=== PATIENT | female | born 1965 | race Hispanic/Latino ===

== ENCOUNTER 2019-05-14 12:22 | Emergency (ER) | payer OTHER ==
[2019-05-14] MEDS ORDERED: NA CHLORIDE 0.9% 500 ML ONE (12:49)
[2019-05-14] MEDS ORDERED: NA CHLORIDE 0.9% 0 ML ONE (12:49)
--- NOTE | 2019-05-14 13:14 | RAD REPORT ---
EXAM DESCRIPTION: CT - Head C Spine Mpr Wo Con - 05/14/2019 12:55 pm CLINICAL HISTORY: Alteration of awareness. Confusion. Head and neck pain COMPARISON: 2012 TECHNIQUE: Computed axial tomography of the head and cervical spine was obtained. Sagittal and coronal reconstruction was performed. All CT scans are performed using dose optimization technique as appropriate and may include automated exposure control or mA/KV adjustment according to patient size. FINDINGS: An intracranial bleed is not seen. The ventricles are normal in caliber. An extra-axial fl uid collection is not noted. Mild parahilar peribronchial infiltrates are present A cervical fracture is not visualized. No dislocation is noted. IMPRESSION: No acute intracranial abnormality is seen. Complete opacification of the left maxillary sinus with expansion of the left ostiomeatal complex may be secondary to a mass or sinusitis A cervical fracture is not visualized. If the patient continues to have symptoms to suggest intracra nial /spinal cord pathology then MRI would be recommended
--- NOTE | 2019-05-14 13:19 | RAD REPORT ---
EXAM DESCRIPTION: Kimmy Single View05/14/2019 1:08 pm CLINICAL HISTORY: sob COMPARISON: 2012 FINDINGS: The lungs appear clear of acute infiltrate. The heart is normal size IMPRESSION: No acute abnormalities displayed
[2019-05-14 13:59] LABS: Urine Blood NEGATIVE (NEG); Urine Glucose NEGATIVE (NEG); Urine Protein NEGATIVE (NEG); Urine Specific Gravity 1.015 (1.005-1.030)
[2019-05-14 14:01] LABS: ALT/SGPT 48 U/L (12-78); AST/SGOT 36 U/L (15-37); Alkaline Phosphatase 94 U/L (45-117); BUN Blood Urea Nitrogen 15 mg/dL (7-18); Bicarbonate 29 mmol/L (21-32); Bilirubin Direct 0.2 mg/dL (0-0.2); Glucose Level 94 mg/dL (74-106); Magnesium 2.4 mg/dL (1.8-2.4); NT PRO-BNP 122 pg/mL (<125); Protein, Total 8.7 g/dL (6.4-8.2); Sodium Level 143 mmol/L (136-145); Troponin (Emerg Dept Use Only) < 0.02 ng/mL (0.0-0.045)
[2019-05-14] MEDS ORDERED: ONDANSETRON 4 MG/2 ML VIAL ONE (14:14)
[2019-05-14] MEDS ORDERED: CEFTRIAXONE/SWI 1gm 1 GM/10 ML SYR ONE (14:15)
[2019-05-14] MEDS ORDERED: NA CHLORIDE 0.9% 1,000 ML ONE (14:15)
[2019-05-14 14:20] LABS: Absolute Lymphocytes (CBC) 1.7 K/uL (0.7-4.9); Basophils % 0.2 % (0-1.3); Hematocrit 34.5 % (36.0-45.0); Lymphocytes % 30.2 % (15.3-44.8); MPV 9.6 fL (7.6-11.3); Protime INR 1.04; RBC Red Blood Cell Count 3.67 M/uL (3.86-4.86)
--- NOTE | 2019-05-14 15:05 | RAD REPORT ---
EXAM DESCRIPTION: RAD - Shoulder Right 2 View - 05/14/2019 2:43 pm CLINICAL HISTORY: Right shoulder pain FINDINGS: No fracture or dislocation is seen.
--- NOTE | 2019-05-14 15:13 | ER ---
Nurse's Notes [facility] Name: Chika Jenkins Age: 53 yrs Sex: Female : 1965 Arrival Date: 05/14/2019 Time: 12:23 Bed 3 Private MD: Diagnosis: Headache;Superficial injury of head;Strain of muscle, fascia and tendon at neck level;Pain in right shoulder;Acute sinusitis Presentation: 05/14 12:23 Presenting complaint: EMS states: CALLED FOR UNRESPONSIVE AT [facility]. Transition of bp care: patient was not received from another setting of care. Onset of symptoms is unknown. Risk Assessment: Do you want to hurt yourself or someone else? Patient reports no desire to harm self or others. Initial Sepsis Screen: Does the patient meet any 2 criteria? No. Patient's initial sepsis screen is negative. Does the patient have a suspected source of infection? No. Patient's initial sepsis screen is negative. Care prior to arrival: Glucose check: 181. 12:23 Method Of Arrival: EMS: [facility] bp 12:23 Acuity: OMAR 2 bp Triage Assessment: 12:25 General: Appears in no apparent distress. comfortable, obese, Behavior is cooperative, bp agitated, anxious. Pain: Complains of pain in right arm. EENT: No deficits noted. Neuro: Level of Consciousness is obeys commands, lethargic. Cardiovascular: No deficits noted. Respiratory: No deficits noted. GI: No signs and/or symptoms were reported involving the gastrointestinal system. : No signs and/or symptoms were reported regarding the genitourinary system. Derm: No deficits noted. Musculoskeletal: No deficits noted. 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 - Social history:: Smoking status: unknown. - Ebola Screening: : No symptoms or risks identified at this time. - Family history:: not pertinent. Screenin:27 Abuse screen: Denies threats or abuse. Denies injuries from another. Nutritional bp screening: No deficits noted. Tuberculosis screening: No symptoms or risk factors identified. Fall Risk None identified. Assessment: 12:27 General: SEE TRIAGE NOTE. bp 12:42 Reassessment: PT TO CT. bp 13:31 Reassessment: UOP PENDING, ALL OTHER ORDERS COMPLETED. bp 15:07 Reassessment: VS STABLE, ALL CURRENT ORDERS COMPLETED. bp 15:30 Reassessment: D/C ON HOLD FOR C/S. bp 16:31 Reassessment: PT D/C HOME AMBULATORY WITH FAMILY, DX WITH ACUTE SINUSITIS. bp Vital Signs: 12:25 BP 150 / 81; Pulse 74; Resp 16; Temp 98; Pulse Ox 100% ; Weight 79.38 kg; bp 13:31 BP 117 / 71; Pulse 75; Resp 15; Pulse Ox 98% ; bp 15:07 BP 126 / 72; Pulse 68; Resp 17; Pulse Ox 99% ; bp NIH Stroke Scale Scores: 12:25 NIHSS Score: 1 bp ED Course: 12:23 Patient arrived in ED. bp 12:24 Triage completed. bp 12:25 Arm band placed on. bp 12:26 Inserted saline lock: 22 gauge in left upper arm, using aseptic technique. Blood hj collected. 12:27 Patient has correct armband on for positive identification. Bed in low position. Call bp light in reach. Side rails up X2. 12:31 Jose Sanders, ALECIA is Primary Nurse. bp 12:34 Oleg Sullivan MD is Attending Physician. cary 12:34 EKG done, by ED staff, reviewed by Oleg Sullivan MD. ms 12:55 CT completed. Patient moved to radiology. bq 12:58 CT Head C Spine In Process Unspecified. EDMS 13:07 XRAY Chest (1 view) In Process Unspecified. EDMS 13:30 Inserted saline lock: 22 gauge in right forearm, using aseptic technique. Blood bp collected. 14:44 Shoulder Right (2 View) XRAY In Process Unspecified. EDMS 15:11 Tanya Lawrence MD is Referral Physician. cary 16:31 No provider procedures requiring assistance completed. IV discontinued, intact, bp bleeding controlled, No redness/swelling at site. Pressure dressing applied. Administered Medications: 13:30 Drug: NS 0.9% 1000 ml Route: IV; Rate: 125 ml/hr; Site: right forearm; bp 16:32 Follow up: IV Status: Completed infusion; IV Intake: 375ml bp 13:30 Drug: NS 0.9% 500 ml Route: IV; Rate: bolus; Site: right forearm; bp 16:32 Follow up: IV Status: Completed infusion; IV Intake: 500ml bp 14:17 Drug: Rocephin - (cefTRIAXone) 1 grams Route: IVPB; Infused Over: 30 mins; Site: right bp forearm; 16:32 Follow up: IV Status: Completed infusion; IV Intake: 50ml bp Intake: 16:32 IV: 500ml; Total: 500ml. bp 16:32 IV: 375ml; Total: 875ml. bp 16:32 IV: 50ml; Total: 925ml. bp Outcome: 15:11 Discharge ordered by MD. cary 16:31 Discharged to home ambulatory, with family. bp 16:31 Condition: stable 16:31 Discharge instructions given to patient, family, Instructed on discharge instructions, follow up and referral plans. medication usage, Demonstrated understanding of instructions, follow-up care, medications, Prescriptions given X 4. 16:42 Patient left the ED. bp NIH Stroke Scale - NIH Stroke Score Date: 05/14/2019 Time: 12:25 Total Score = 1 1a. Level of Consciousness (LOC) - 0(Alert) 1b. Level of Consciousness (LOC) (Year \T\ Age) - 0(Both) 1c. LOC Commands (Open \T\ Closes Eyes/Forming Roll Operator Heavy Duty) - 0(Both) 2. Best Gaze (Lateral Gaze Paresis) - 0(Normal) 3. Visual Field Loss - 0(No visual loss) 4. Facial Palsy - 0(Normal) 5a. Left Arm: Motor (10-second hold) - 0(No drift) 5b. Right Arm: Motor (10-second hold) - 0(No drift) 6a. Left Leg: Motor (5-second hold - always test supine) - 0(No drift) 6b. Right Leg: Motor (5-second hold - always test supine) - 0(No drift) 7. Limb Ataxia (finger/nose \T\ heel/banda - test with eyes open) - 0(Absent) 8. Sensory Loss (pinprick arms/legs/face) - 0(Normal) 9. Best Language: Aphasia (description/naming/reading) - 0(No aphasia) 10. Dysarthria (speech clarity - read or repeat words) - 1(Mild to Moderate) 11. Extinction and Inattention (visual/tactile/auditory/spatial/personal) - 0(No abnormality) Initials: bp Signatures: Dispatcher [employer] Oleg Angeles MD MD cha Quilty, Betty bq Solis, Maria ms Joaquin, Henry RN RN Jose Ott RN RN bp
--- NOTE | 2019-05-14 15:14 | EDPHYS ---
Physician Documentation [facility] Name: Chika Jenkins Age: 53 yrs Sex: Female : 1965 Arrival Date: 05/14/2019 Time: 12:23 Bed 3 Private MD: ED Physician Oleg Sullivan HPI: 05/14 12:40 This 53 yrs old Female presents to ER via EMS with complaints of Altered cary Mental Status. 12:40 The patient presents with confusion, decreased responsiveness. Onset: The cary symptoms/episode began/occurred just prior to arrival. Possible causes: unknown. Associated signs and symptoms: The patient has no apparent associated signs or symptoms. Current symptoms: In the emergency department the patient's symptoms have improved, mildly. Patient's baseline: Neuro:. The patient has not experienced similar symptoms in the past. 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 - Social history:: Smoking status: unknown. - Ebola Screening: : No symptoms or risks identified at this time. - Family history:: not pertinent. ROS: 12:40 Constitutional: Negative for fever, chills, and weight loss, Eyes: Negative for injury, cary pain, redness, and discharge, ENT: Negative for injury, pain, and discharge, Neck: Negative for injury, pain, and swelling, Cardiovascular: Negative for chest pain, palpitations, and edema, Respiratory: Negative for shortness of breath, cough, wheezing, and pleuritic chest pain, Abdomen/GI: Negative for abdominal pain, nausea, vomiting, diarrhea, and constipation, Back: Negative for injury and pain, : Negative for injury, bleeding, discharge, and swelling, MS/Extremity: Negative for injury and deformity, Skin: Negative for injury, rash, and discoloration, Psych: Negative for depression, anxiety, suicide ideation, homicidal ideation, and hallucinations, Allergy/Immunology: Negative for hives, rash, and allergies, Endocrine: Negative for neck swelling, polydipsia, polyuria, polyphagia, and marked weight changes, Hematologic/Lymphatic: Negative for swollen nodes, abnormal bleeding, and unusual bruising. 12:40 Neuro: Positive for headache. Exam: 12:40 Constitutional: This is a well developed, well nourished patient who is awake, alert, cary and in no acute distress. Head/Face: Normocephalic, atraumatic. Eyes: Pupils equal round and reactive to light, extra-ocular motions intact. Lids and lashes normal. Conjunctiva and sclera are non-icteric and not injected. Cornea within normal limits. Periorbital areas with no swelling, redness, or edema. ENT: Nares patent. No nasal discharge, no septal abnormalities noted. Tympanic membranes are normal and external auditory canals are clear. Oropharynx with no redness, swelling, or masses, exudates, or evidence of obstruction, uvula midline. Mucous membranes moist. Neck: Trachea midline, no thyromegaly or masses palpated, and no cervical lymphadenopathy. Supple, full range of motion without nuchal rigidity, or vertebral point tenderness. No Meningismus. Chest/axilla: Normal chest wall appearance and motion. Nontender with no deformity. No lesions are appreciated. Cardiovascular: Regular rate and rhythm with a normal S1 and S2. No gallops, murmurs, or rubs. Normal PMI, no JVD. No pulse deficits. Respiratory: Lungs have equal breath sounds bilaterally, clear to auscultation and percussion. No rales, rhonchi or wheezes noted. No increased work of breathing, no retractions or nasal flaring. Abdomen/GI: Soft, non-tender, with normal bowel sounds. No distension or tympany. No guarding or rebound. No evidence of tenderness throughout. Back: No spinal tenderness. No costovertebral tenderness. Full range of motion. Skin: Warm, dry with normal turgor. Normal color with no rashes, no lesions, and no evidence of cellulitis. MS/ Extremity: Pulses equal, no cyanosis. Neurovascular intact. Full, normal range of motion. Psych: Awake, alert, with orientation to person, place and time. Behavior, mood, and affect are within normal limits. 12:40 Neuro: Orientation: is normal, appropriate for stated age, no acute changes, Mentation: slow to respond, Cerebellar function: unable to test, Motor: moves all fours, Gait: not tested. seizure activity, is not displayed by the patient. Vital Signs: 12:25 BP 150 / 81; Pulse 74; Resp 16; Temp 98; Pulse Ox 100% ; Weight 79.38 kg; bp 13:31 BP 117 / 71; Pulse 75; Resp 15; Pulse Ox 98% ; bp 15:07 BP 126 / 72; Pulse 68; Resp 17; Pulse Ox 99% ; bp NIH Stroke Scale Scores: 12:25 NIHSS Score: 1 bp MDM: 12:35 Patient medically screened. [facility] 12:43 Data reviewed: vital signs, nurses notes, lab test result(s), EKG, radiologic studies, [facility] CT scan, plain films. 05/14 12:31 Order name: Basic Metabolic Panel; Complete Time: 15:00 bp 05/14 12:31 Order name: CBC with Diff; Complete Time: 15:00 bp 05/14 12:31 Order name: LFT's; Complete Time: 15:00 bp 05/14 12:31 Order name: Magnesium; Complete Time: 15:00 bp 05/14 12:31 Order name: NT PRO-BNP; Complete Time: 15:00 bp 05/14 12:31 Order name: PT-INR; Complete Time: 15:00 bp 05/14 12:31 Order name: Troponin (emerg Dept Use Only); Complete Time: 15:00 bp 05/14 12:31 Order name: XRAY Chest (1 view); Complete Time: 13:47 bp 05/14 12:40 Order name: CT Head C Spine; Complete Time: 13:47 [facility] 05/14 12:40 Order name: Lipase; Complete Time: 15:00 [facility] 05/14 13:50 Order name: Urine Dipstick--Ancillary (enter results); Complete Time: 15:00 05/14 13:55 Order name: Shoulder Right (2 View) XRAY [facility] 05/14 12:31 Order name: EKG; Complete Time: 12:33 bp 05/14 12:31 Order name: Cardiac monitoring; Complete Time: 12:32 bp 05/14 12:31 Order name: EKG - Nurse/Tech; Complete Time: 12:32 bp 05/14 12:31 Order name: IV Saline Lock; Complete Time: 12:32 bp 05/14 12:31 Order name: Labs collected and sent; Complete Time: 13:48 bp 05/14 12:31 Order name: O2 Per Protocol; Complete Time: 12:32 bp 05/14 12:31 Order name: O2 Sat Monitoring; Complete Time: 12:32 bp 05/14 12:40 Order name: Urine Dipstick-Ancillary (obtain specimen); Complete Time: 13:48 cary 05/14 13:46 Order name: Labs - recollect needed; Complete Time: 14:08 hb Administered Medications: 13:30 Drug: NS 0.9% 1000 ml Route: IV; Rate: 125 ml/hr; Site: right forearm; bp 16:32 Follow up: IV Status: Completed infusion; IV Intake: 375ml bp 13:30 Drug: NS 0.9% 500 ml Route: IV; Rate: bolus; Site: right forearm; bp 16:32 Follow up: IV Status: Completed infusion; IV Intake: 500ml bp 14:17 Drug: Rocephin - (cefTRIAXone) 1 grams Route: IVPB; Infused Over: 30 mins; Site: right bp forearm; 16:32 Follow up: IV Status: Completed infusion; IV Intake: 50ml bp Disposition: 05/14/19 15:11 Discharged to Home. Impression: Headache, Superficial injury of head, Strain of muscle, fascia and tendon at neck level, Pain in right shoulder, Acute sinusitis. - Condition is Stable. - Discharge Instructions: Head Injury, Adult, Muscle Strain, Shoulder Pain, Shoulder Pain, [id number], Cervical Sprain, [id number], Head Injury, Adult, [id number]. - Prescriptions for Augmentin 875- 125 mg Oral Tablet - take 1 tablet by ORAL route every 12 hours for 10 days; 20 tablet. Ibuprofen 600 mg Oral Tablet - take 1 tablet by ORAL route every 6 hours As needed take with food; 30 tablet. Tylenol- Codeine #3 300-30 mg Oral Tablet - take 2 tablet by ORAL route every 6 hours As needed; 30 tablet. Zofran 4 mg Oral Tablet - take 1 tablet by ORAL route every 12 hours As needed; 20 tablet. Cyclobenzaprine 5 mg Oral Tablet - take 1 tablet by ORAL route 3 times per day As needed; 15 tablet. - Medication Reconciliation Form, Thank You Letter, Antibiotic Education, Prescription Opioid Use form. - Follow up: Private Physician; When: 2 - 3 days; Reason: Recheck today's complaints, Continuance of care, Re-evaluation by your physician. Follow up: Tanya Lawrence; When: 2 - 3 days; Reason: Recheck today's complaints, Re-evaluation by your physician. - Problem is new. - Symptoms have improved. NIH Stroke Scale - NIH Stroke Score Date: 05/14/2019 Time: 12:25 Total Score = 1 1a. Level of Consciousness (LOC) - 0(Alert) 1b. Level of Consciousness (LOC) (Year \T\ Age) - 0(Both) 1c. LOC Commands (Open \T\ Closes Eyes/Consulting Networking Engineer) - 0(Both) 2. Best Gaze (Lateral Gaze Paresis) - 0(Normal) 3. Visual Field Loss - 0(No visual loss) 4. Facial Palsy - 0(Normal) 5a. Left Arm: Motor (10-second hold) - 0(No drift) 5b. Right Arm: Motor (10-second hold) - 0(No drift) 6a. Left Leg: Motor (5-second hold - always test supine) - 0(No drift) 6b. Right Leg: Motor (5-second hold - always test supine) - 0(No drift) 7. Limb Ataxia (finger/nose \T\ heel/banda - test with eyes open) - 0(Absent) 8. Sensory Loss (pinprick arms/legs/face) - 0(Normal) 9. Best Language: Aphasia (description/naming/reading) - 0(No aphasia) 10. Dysarthria (speech clarity - read or repeat words) - 1(Mild to Moderate) 11. Extinction and Inattention (visual/tactile/auditory/spatial/personal) - 0(No abnormality) Initials: bp Signatures: Dispatcher [employer] [facility] Oleg Sullivan MD MD cha Baxter, Heather, ALECIA ALSTON Jose Sanders, ALECIA RN bp Corrections: (The following items were deleted from the chart) 12:56 12:33 Head Brain Wo [id number] ordered. [facility] 16:42 15:11 05/14/2019 15:11 Discharged to Home. Impression: Headache; Superficial bp injury of head; Strain of muscle, fascia and tendon at neck level; Pain in right shoulder; Acute sinusitis. Condition is Stable. Discharge Instructions: Head Injury, Adult, Muscle Strain, Shoulder Pain, Shoulder Pain, [id number], Cervical Sprain, [id number], Head Injury, Adult, [id number]. Prescriptions for Augmentin 875-125 mg Oral Tablet - take 1 tablet by ORAL route every 12 hours for 10 days; 20 tablet, Ibuprofen 600 mg Oral Tablet - take 1 tablet by ORAL route every 6 hours As needed take with food; 30 tablet, Tylenol-Codeine #3 300-30 mg Oral Tablet - take 2 tablet by ORAL route every 6 hours As needed; 30 tablet, Zofran 4 mg Oral Tablet - take 1 tablet by ORAL route every 12 hours As needed; 20 tablet, Cyclobenzaprine 5 mg Oral Tablet - take 1 tablet by ORAL route 3 times per day As needed; 15 tablet. and Forms are Medication Reconciliation Form, Thank You Letter, Antibiotic Education, Prescription Opioid Use. Follow up: Private Physician; When: 2 - 3 days; Reason: Recheck today's complaints, Continuance of care, Re-evaluation by your physician. Follow up: Tanya Lawrence; When: 2 - 3 days; Reason: Recheck today's complaints, Re-evaluation by your physician. Problem is new. Symptoms have improved. cary
[2019-05-14 17:51] VITALS: TEMP 98
[2019-05-14 17:53] VITALS: BP 126/72; O2SAT 99
--- NOTE | 2019-05-15 08:38 | EKG ---
Test Date: 2019-05-14 Test Time: 12:30:34 Supply Chain Program Manager: MEASUREMENT RESULTS: Intervals: Rate: 70 [place]: 112 QRSD: 78 QT: 384 QTc: 414 [place]: P: 35 [place]: 112 QRS: 43 T: 29 INTERPRETIVE STATEMENTS: Normal sinus rhythm Normal ECG Compared to ECG 04/17/2014 09:42:52 Sinus bradycardia no longer present Electronically Signed On 05-15-19 08:36:13 CDT by Ayden Pineda
== END 2019-05-14 16:42 | disposition home or self-care (01) ==
LOC: ER 12:22
DX: S00.90XA Unspecified superficial injury of unspecified part of head, initial encounter (principal); S16.1XXA Strain of muscle, fascia and tendon at neck level, initial encounter; X58.XXXA Exposure to other specified factors, initial encounter; M25.511 Pain in right shoulder; J01.90 Acute sinusitis, unspecified
CPT/HCPCS: 96365; 96361; 93005; 85025; 80048; 36415; 83735; 85610; 80076; 81003; 84484; 83690; 83880; 70450; 72125; 71045; 73030; 99284; 96366; J0696; J7030; J2405

== ENCOUNTER 2024-10-11 11:57 | Emergency (ER) | payer BC, OTHER ==
--- OUTSIDE RECORDS SUMMARY | 2024-10-11 12:00 | XMS REPORT | Continuity of Care Document ---
Author Name Unknown Address [address] [facility] [address] [place] [address] [facility] thconnect Address [address] [facility] [address] [place] [address] Care Team Providers Care Mixer Operator Name Role Phone CARMELA YIN Primary Care Physician Un available [email or web address] Attending Clinician Unavaila CANDELARIO Galloway Attending Clinician Unavail able CANDELARIO BUTLER Attending Clinician Unavail able HONEY HUNTLEY Attending Clinician Unavailable Candelario Butler MD Attending Clinician FIDE SMITH Attending Clinician Unavailable Doctor Unassigned, [place] Attending Clinician U navailable [email or web address] Admitting Clinician Unavaila ble Payers Payer Name Policy Type Policy Number Effective Date Expirati on Date Source [id number] DEGREE BENEFITS 2 [id number] 2022 00:00:00 Problems Condition Name Condition Details Condition Category Status Onset Date Resolution Date Last Treatment Date Treating Clinician Comments Source Migraine without aura and without status migrainosu s, not intractabl e Migraine without aura and without status migrainosu s, not intractabl e Disease Active 12-15 00:00: 00 Jessica Seybold - Externa l No known active problems No known active problems Disease [facility] Allergies, Adverse Reactions, Alerts Allergy Name Allergy Type Status Severity Reaction(s) Onset Date Inactive Date Treating Clinician Comments Source NO KNOWN ALLERGIE S Drug Class Active [facility] Social History Social Habit Start Date Stop Date Quantity Comments Source Gender identity [facility] Sexual orientation U [facility] Exposure to SARS-CoV-2 (event) 2022-05-16 00:00:00 2022-05-26 15:41:00 Not sure [facility] Tobacco use and exposure 2022-05-26 00:00:00 2022-05-26 00:00:00 Smokeless tobacco non-user [facility] Alcohol intake 2022-05-26 00:00:00 2022-05-26 00:00:00 Current non-drinker of alcohol (finding) [facility] History of Social function 2020-04-17 00:00:00 2020-04-17 00:00:00 [facility] Sex Ass[birth year] At 1965 00:00:00 1965 00:00:00 Jessica Robin - External Smoking Status Start Date Stop Date Source Tobacco smoking consumption unknown Jessica Freeman Ext ernal Never smoked tobacco [facility] Medications Ordered Medication Name Filled Medication Name Start Date Stop Date Current Medication? Ordering Clinician Indication Dosage Frequency Signature (SIG) Comments Components Source Erenumab-ao oe (AIMOVIG) 70 MG/ML subcutaneou s Solution Auto-inject or injection 12-15 20:35: 11 Yes 70mg Inject 1 mL (70 mg total) into the skin once a month Jessica lux Empaglifloz in-linaGLIP tin (Glyxambi) 10-5 MG oral Tablet 12-15 16:36: 05 Yes 10mg Take 10 mg by mouth 2 times daily Jessica Freeman Externephraim lux Venlafaxine HCl 75 MG oral Tablet 12-15 16:36: 05 Yes 75mg Take 1 tablet (75 mg total) by mouth 2 times daily Jessica lux Acetaminoph en-Codeine 300-30 MG oral Tablet 12-15 00:00: 00 Yes [id number] 1{tbl} Q.25D Take 1 tablet by mouth every 6 hours as needed for pain Jessica lux Ondansetron HCl 4 MG oral Tablet 4-04 00:00: 00 Yes [id number] 4mg Q.[id number] 3D Take 1 tablet (4 mg total) by mouth every 8 hours as needed for nausea Jessica lux Zonisamide 100 MG oral Capsule 3-15 00:00: 00 Yes TAKE 2 CAPSULES BY MOUTH IN THE MORNING AND 2 CAPSULES IN THE EVENING. Jessica lux Lisinopril 20 MG oral Tablet 3-14 00:00: 00 Yes 20mg Take 1 tablet (20 mg total) by mouth daily Jessica lux Atorvastati n Calcium 20 MG oral Tablet 1-19 00:00: 00 Yes 20mg Take 1 tablet (20 mg total) by mouth daily Jessica lux ondansetron (ZOFRAN) 4 mg tablet 9- 00:00: 00 Yes 4mg Take 1 tablet by mouth 3 (three) times daily as needed for Nausea and Vomiting (N/V). May take up to 3 times daily for N/V due to migraine headaches. [facility] zonisamide 100 mg capsule 05-26 00:00: 00 Yes [id number] 200mg Take 2 capsules by mouth in the morning and 2 capsules in the evening. [facility] venlafaxine 75 mg tablet 05-26 00:00: 00 Yes [id number] 225mg Take 3 tablets by mouth in the morning. [facility] erenumab-ao oe (AIMOVIG AUTOINJECTO R) 140 mg/mL AtIn 05-26 00:00: 00 Yes [id number] 140mg inject 140 mg under the skin once every month. [facility] venlafaxine 75 mg tablet 7-19 00:00: 00 05-26 00:00 :00 No [id number] 225mg Take 3 tablets by mouth in the morning. [facility] ZONISAMIDE 100 mg capsule 6-06 00:00: 05-26 00:00 :00 No [id number] TAKE 2 CAPSULES BY MOUTH TWICE A DAY [facility] VENLAFAXINE 75 mg tablet 2-09 00:00: 00 03-31 00:00 :00 No [id number] TAKE 3 TABLETS BY MOUTH EVERY DAY [facility] VENLAFAXINE 75 mg tablet 2020-09 0- 00:00: 00 Yes [id number] TAKE 3 TABLETS BY MOUTH EVERY DAY [facility] ZONISAMIDE 100 mg capsule 8- 00:00: 00 02-16 00:00 :00 No [id number] TAKE 2 CAPSULES BY MOUTH TWICE A DAY [facility] VENLAFAXINE 75 mg tablet 6-16 00:00: 00 06-25 00:00 :00 No [id number] TAKE 3 TABLETS BY MOUTH EVERY DAY [facility] VENLAFAXINE 75 mg tablet 11-22 00:00: 00 Yes [id number] TAKE 3 TABLETS BY MOUTH EVERY DAY [facility] butorphanol 10 mg/mL nasal spray 11-22 00:00: 00 Yes [id number] SPRAY 1 SPRAY INTO ONE NOSTRIL EVERY 8 HOURS NEEDED FOR PAIN Indication s: acute pain [facility] erenumab-ao oe (AIMOVIG AUTOINJECTO R) 140 mg/mL AtIn 11-22 00:00: 00 05-26 00:00 :00 No [id number] 140mg inject 140 mg under the skin once every month. [facility] zonisamide 100 mg capsule 3-12 00:00: 00 05-12 00:00 :00 No [id number] TAKE 2 CAPSULES BY MOUTH TWICE A DAY [facility] metformin ER 500 mg 24 hr tablet 3-05 00:00: 00 Yes [facility] GLYXAMBI 10-5 mg Tab 3- 00:00: 00 Yes TAKE 1 TABLET BY MOUTH DAILY IN MORNING WITH BREAKFAST [facility] VENLAFAXINE 75 mg tablet 2-07 00:00: 00 11-22 00:00 :00 No [id number] TAKE 3 TABLETS BY MOUTH EVERY DAY [facility] butorphanol 10 mg/mL nasal spray 10-10 00:00: 00 11-22 00:00 :00 No [id number] SPRAY 1 SPRAY INTO ONE NOSTRIL EVERY 8 HOURS NEEDED FOR PAIN Indication s: acute pain [facility] butorphanol 10 mg/mL nasal spray 2019-09 2-21 00:00: 00 10-10 00:00 :00 No [id number] SPRAY 1 SPRAY INTO ONE NOSTRIL EVERY 8 HOURS NEEDED FOR PAIN Indication s: acute pain [facility] butorphanol 10 mg/mL nasal spray 2019-09 00:00: 00 Yes [id number] SPRAY 1 SPRAY INTO ONE NOSTRIL EVERY 8 HOURS NEEDED FOR PAIN Indication s: acute pain [facility] VENLAFAXINE 75 mg tablet 2019-09 00:00: 00 10-20 00:00 :00 No [id number] TAKE 3 TABLETS BY MOUTH EVERY DAY [facility] butorphanol 10 mg/mL nasal spray 2019-09 0- 00:00: 00 07-26 00:00 :00 No SPRAY 1 SPRAY INTO ONE NOSTRIL EVERY 8 HOURS NEEDED FOR PAIN Indication s: Acute migraine pain [facility] butorphanol 10 mg/mL nasal spray 18 00:00: 00 06-25 00:00 :00 No [id number] SPRAY 1 SPRAY INTO ONE NOSTRIL EVERY 8 HOURS NEEDED FOR PAIN [facility] butorphanol 10 mg/mL nasal spray 6-15 00:00: 00 02-28 00:00 :00 No [id number] SPRAY 1 SPRAY INTO ONE NOSTRIL EVERY 8 HOURS NEEDED FOR PAIN [facility] zonisamide 100 mg capsule 5-18 00:00: 00 11-22 00:00 :00 No [id number] TAKE 2 CAPSULES BY MOUTH TWICE A DAY [facility] butorphanol 10 mg/mL nasal spray 3-20 00:00: 00 02-25 00:00 :00 No [id number] SPRAY 1 SPRAY INTO ONE NOSTRIL EVERY 8 HOURS NEEDED FOR PAIN [facility]e (AIMOVIG AUTOINJECTO R) 140 mg/mL AtIn -17 00:00: 00 11-22 00:00 :00 No [id number] 140mg inject 140 mg under the skin once every month. [facility] venlafaxine 75 mg tablet -17 00:00: 07-16 00:00 :00 No [id number] 75mg Take 1 tablet by mouth 3 (three) times daily. [facility] zonisamide 100 mg capsule 10-30 00:00: 00 01-28 00:00 :00 No [id number] 2 by mouth BID [facility]anol 10 mg/mL nasal spray 10-30 00:00: 00 11-30 00:00 :00 No [id number] SPRAY 1 SPRAY INTO ONE NOSTRIL EVERY 8 HOURS NEEDED FOR PAIN [facility] venlafaxine 75 mg tablet 1 00:00: 10-30 00:00 :00 No 225mg Take 3 tablets by mouth daily. [facility] but[facility]anol 10 mg/mL nasal spray -16 00:00: 00 10-30 00:00 :00 No SPRAY 1 SPRAY INTO ONE NOSTRIL EVERY 8 HOURS NEEDED FOR PAIN [facility] venlafaxine 75 mg tablet 116 00:00: 00 Yes 225mg Take 3 tablets by mouth daily. [facility] ZONISAMIDE 100 mg capsule 2017-09 1- 00:00: 00 10-30 00:00 :00 No TAKE 2 CAPSULES BY MOUTH TWICE A DAY [facility] erenumab-[facility]e (AIMOVIG AUTOINJECTO R) 70 mg/mL AtIn 2017-09 0- 00:00: 00 10-30 00:00 :00 No 1{dose} inject 1 Dose under the skin once every month. [facility] lisinopril 20 mg tablet - 00:00: 00 Yes 20mg Take 20 mg by mouth daily. [facility] Immunizations Ordered Immunization Name Filled Immunization Name Date Status Comments Source SARS-COV-2 COVID-19 PFIZER VACCINE 2020-11-30 00:00:00 Completed [facility] SARS-COV-2 COVID-19 PFIZER VACCINE 2020-11-30 00:00:00 Completed [facility] SARS-COV-2 COVID-19 PFIZER VACCINE 2020-11-30 00:00:00 Completed [facility] SARS-COV-2 COVID-19 PFIZER VACCINE 2020-11-30 00:00:00 Completed [facility] SARS-COV-2 COVID-19 PFIZER VACCINE 2020-11-30 00:00:00 Completed [facility] SARS-COV-2 COVID-19 PFIZER VACCINE 2020-11-30 00:00:00 Completed [facility] SARS-COV-2 COVID-19 PFIZER VACCINE 2020-11-30 00:00:00 Completed [facility] SARS-COV-2 COVID-19 PFIZER VACCINE 2020-11-30 00:00:00 Completed [facility] SARS-COV-2 COVID-19 PFIZER VACCINE 2020-11-30 00:00:00 Completed [facility] SARS-COV-2 COVID-19 PFIZER VACCINE 2020-11-30 00:00:00 Completed [facility] SARS-COV-2 COVID-19 PFIZER VACCINE 2020-11-30 00:00:00 Completed [facility] SARS-COV-2 COVID-19 PFIZER VACCINE 2020-11-30 00:00:00 Completed [facility] SARS-COV-2 COVID-19 PFIZER VACCINE 2020-11-30 00:00:00 Completed [facility] SARS-COV-2 COVID-19 PFIZER VACCINE 2020-11-30 00:00:00 Completed [facility] SARS-COV-2 COVID-19 PFIZER VACCINE 2020-11-30 00:00:00 Completed [facility] SARS-COV-2 COVID-19 PFIZER VACCINE 2020-11-30 00:00:00 Completed [facility] SARS-COV-2 COVID-19 PFIZER VACCINE 2020-11-30 00:00:00 Completed [facility] SARS-COV-2 COVID-19 PFIZER VACCINE 2020-11-30 00:00:00 Completed [facility] SARS-COV-2 COVID-19 PFIZER VACCINE 2020-11-30 00:00:00 Completed [facility] SARS-COV-2 COVID-19 PFIZER VACCINE 2020-11-30 00:00:00 Completed [facility] SARS-COV-2 COVID-19 PFIZER VACCINE 2020-11-30 00:00:00 Completed [facility] SARS-COV-2 COVID-19 PFIZER VACCINE 2020-11-30 00:00:00 Completed [facility] SARS-COV-2 COVID-19 PFIZER VACCINE 2020-11-30 00:00:00 Completed [facility] SARS-COV-2 COVID-19 PFIZER VACCINE 2020-11-30 00:00:00 Completed [facility] SARS-COV-2 COVID-19 PFIZER VACCINE 2020-11-30 00:00:00 Completed [facility] SARS-COV-2 COVID-19 PFIZER VACCINE 2020-11-30 00:00:00 Completed [facility] SARS-COV-2 COVID-19 PFIZER VACCINE 2020 00:00:00 Completed [facility] SARS-COV-2 COVID-19 PFIZER VACCINE 2020 00:00:00 Completed [facility] SARS-COV-2 COVID-19 PFIZER VACCINE 2020 00:00:00 Completed [facility] SARS-COV-2 COVID-19 PFIZER VACCINE 2020 00:00:00 Completed [facility] SARS-COV-2 COVID-19 PFIZER VACCINE 2020 00:00:00 Completed [facility] SARS-COV-2 COVID-19 PFIZER VACCINE 2020 00:00:00 Completed [facility] SARS-COV-2 COVID-19 PFIZER VACCINE 2020 00:00:00 Completed [facility] SARS-COV-2 COVID-19 PFIZER VACCINE 2020 00:00:00 Completed [facility] SARS-COV-2 COVID-19 PFIZER VACCINE 2020 00:00:00 Completed [facility] SARS-COV-2 COVID-19 PFIZER VACCINE 2020 00:00:00 Completed [facility] SARS-COV-2 COVID-19 PFIZER VACCINE 2020 00:00:00 Completed [facility] SARS-COV-2 COVID-19 PFIZER VACCINE 2020 00:00:00 Completed [facility] SARS-COV-2 COVID-19 PFIZER VACCINE 2020 00:00:00 Completed [facility] SARS-COV-2 COVID-19 PFIZER VACCINE 2020 00:00:00 Completed [facility] SARS-COV-2 COVID-19 PFIZER VACCINE 2020 00:00:00 Completed [facility] SARS-COV-2 COVID-19 PFIZER VACCINE 2020 00:00:00 Completed [facility] SARS-COV-2 COVID-19 PFIZER VACCINE 2020 00:00:00 Completed [facility] SARS-COV-2 COVID-19 PFIZER VACCINE 2020 00:00:00 Completed [facility] SARS-COV-2 COVID-19 PFIZER VACCINE 2020 00:00:00 Completed [facility] SARS-COV-2 COVID-19 PFIZER VACCINE 2020 00:00:00 Completed [facility] SARS-COV-2 COVID-19 PFIZER VACCINE 2020 00:00:00 Completed [facility] SARS-COV-2 COVID-19 PFIZER VACCINE 2020 00:00:00 Completed [facility] SARS-COV-2 COVID-19 PFIZER VACCINE 2020 00:00:00 Completed [facility] SARS-COV-2 COVID-19 PFIZER VACCINE 2020 00:00:00 Completed [facility] SARS-COV-2 COVID-19 PFIZER VACCINE 2020 00:00:00 Completed [facility] SARS-COV-2 COVID-19 PFIZER VACCINE 2020 00:00:00 Completed [facility] SARS-COV-2 COVID-19 PFIZER VACCINE 2020 00:00:00 Completed [facility] SARS-COV-2 COVID-19 PFIZER VACCINE 2020 00:00:00 Completed [facility] SARS-COV-2 COVID-19 PFIZER VACCINE Unknown Completed [facility] Vital Signs Vital Name Observation Time Observation Value Comments Marie torres Systolic blood pressure 2022-12-15 21:32:00 143 mm[Hg] Jessica Seybo ld - External Diastolic blood pressure 2022-12-15 21:32:00 74 mm[Hg] Jessica Brownybo ld - External Heart rate 2022-12-15 21:32:00 93 /min Ann y Seybold - External Body temperature 2022-12-15 21:32:00 37.06 Fatmata Jessica Seybold - External Respiratory rate 2022-12-15 21:32:00 15 /min Jessica Brownybold - External Body height 2022-12-15 21:32:00 160 cm Lalitha bernal Seybold - External Body weight 2022-12-15 21:32:00 82.555 kg Lalitha ey Seybold - External BMI 2022-12-15 21:32:00 32.24 kg/m2 Lalitha ey Seybold - External Oxygen saturation in Arterial blood by Pulse oximetry 2022-12-15 21:32:00 99 /min Jesscia Zhaoo ld - External Systolic blood pressure 2022-05-26 20:49:00 136 mm[Hg] [facility] Diastolic blood pressure 2022-05-26 20:49:00 80 mm[Hg] [facility] Heart rate 2022-05-26 20:49:00 72 /min [facility] weight 2022-05-26 20:49:00 88.451 kg [facility] BMI 2022-05-26 20:49:00 34.54 kg/m2 [facility] Oxygen saturation in Arterial blood by Pulse oximetry 2022-05-26 20:49:00 98 /min [facility] Systolic blood pressure 2020-11-22 19:52:00 109 mm[Hg] [facility] Diastolic blood pressure 2020-11-22 19:52:00 74 mm[Hg] [facility] Heart rate 2020-11-22 19:52:00 87 /min Un[facility] Body height 2020-11-22 19:52:00 160 cm [facility] Body weight 2020-11-22 19:52:00 83.462 kg [facility] BMI 2020-11-22 19:52:00 32.59 kg/m2 [facility] Oxygen saturation in Arterial blood by Pulse oximetry 2020-11-22 19:52:00 98 /min [facility] Systolic blood pressure 2019-10-30 22:05:00 132 mm[Hg] [facility] Diastolic blood pressure 2019-10-30 22:05:00 86 mm[Hg] [facility] Heart rate 2019-10-30 22:05:00 88 /min [facility] Body temperature 2019-10-30 22:05:00 36.11 Fatmata [facility] Respiratory rate 2019-10-30 22:05:00 18 /min [facility] Body height 2019-10-30 22:05:00 160 cm [facility] Body weight 2019-10-30 22:05:00 98.487 kg [facility] BMI 2019-10-30 22:05:00 38.46 kg/m2 [facility] Procedures Procedure Date / Time Performed Performing Clinician Source [employer] 2022-04-23 05:01:00 Doc tor Unassigned, [place] [facility] Encounters Start Date/Time End Date/Time Encounter Type Admission Type Attending Clinicians Care Facility Care Department Encounter ID Source 2023-07-10 00:00:00 2023-07-10 00:00:00 Outpatient [email or web address]_S PRIV PRIV [id number] [facility] 2023-06-21 15:00:00 2023-06-21 15:00:00 Outpatient HONEY RANGEL [facility] [id number] [facility] 2023-06-02 00:00:00 2023-06-02 00:00:00 [facility] 1.2840.114 350.1.13.10 4.2.7.2.686 [id number] [facility] 2023-05-31 00:00:00 2023-05-31 00:00:00 Telephone Luke Candelario [facility] 1.2840.114 350.1.13.10 4.2.7.2.686 [id number] [facility] 2023-05-28 15:40:00 2023-05-28 15:40:00 Outpatient R CANDELARIO BUTLER HOWARD [facility] [id number] [facility] 2023-05-20 00:00:00 2023-05-20 00:00:00 Telephone Luke Candelario [facility] CALEB?[facility] 1.2840.114 350.1.13.10 4.2.7.2.686 [id number] [facility] 2023-05-18 00:00:00 2023-05-18 00:00:00 Telephone Luke [facility] 1.840.114 350.1.13.10 4.2.7.2.686 [id number] [facility] 2023-01-18 00:00:00 2023-01-18 00:00:00 Telephone Luke [facility] 1.2840.114 350.1.13.10 4.2.7.2.686 [id number] [facility] 2023-01-13 00:00:00 2023-01-13 00:00:00 Telephone Honey Huntley [facility] 1.2840.114 350.1.13.10 4.2.7.2.686 [id number] [facility] 2022-12-30 00:00:00 2022-12-30 00:00:00 Telephone Huntley Honey [facility] 1.2.840.114 350.1.13.10 4.2.7.2.686 [id number] [facility] 2022-12-15 16:45:00 2022-12-15 16:45:00 Outpatient FIDE SMITH [id number] Jessica Robin 2022-06-05 00:00:00 2022-06-05 00:00:00 Telephone Candelario Butler [facility] 1..840.114 350.1.13.10 4.2.7.2.686 [id number] [facility] 2022-06-04 00:00:00 2022-06-04 00:00:00 Telephone Candelario Butler [facility] 1..840.114 350.1.13.10 4.2.7.2.686 [id number] [facility] 2022-06-03 00:00:00 2022-06-03 00:00:00 Telephone Candelario Butler [facility] 1.2.840.114 350.1.13.10 4.2.7.2.686 [id number] [facility] 2022-06-03 00:00:00 2022-06-03 00:00:00 Telephone Candelario Butler [facility] 1.2.840.114 350.1.13.10 4.2.7.2.686 [id number] [facility] 2022-05-27 00:00:00 2022-05-27 00:00:00 Telephone [facility] 1.2.840.114 350.1.13.10 4.2.7.2.686 [id number] [facility] 2022-05-26 15:40:00 2022-05-26 16:10:50 Outpatient CANDELARIO ALEJO HOWARD [facility] [id number] [facility] 2022-05-26 15:40:00 2022-05-26 16:10:50 Office Visit [facility]Candelario [facility]os[facility] 1.2.840.114 350.1.13.10 4.2.7.2.686 [id number] [facility] 2022-05-26 00:00:00 2022-05-26 00:00:00 Letter (Out) Candelario Butler [facility] CALEB?[facility] 1.2.840.114 350.1.13.10 4.2.7.2.686 [id number] [facility] 2022-05-20 00:00:00 2022-05-20 00:00:00 Telephone Candelario Butler [facility] CALEB?[facility] 1.2.840.114 350.1.13.10 4.2.7.2.686 [id number] [facility] 2022-05-20 00:00:00 2022-05-20 00:00:00 Refill Luke [facility] CAELB?[facility] 1.2.840.114 350.1.13.10 4.2.7.2.686 [id number] [facility] 2022-05-05 15:40:00 2022-05-05 15:40:00 Outpatient CANDELARIO ALEJO CANDELARIO BUTLER [facility] [id number] [facility] 2022-04-30 00:00:00 2022-04-30 00:00:00 AggieCandelario Pedro [email or web address] 1..840.114 350.1.13.10 4.2.7.2.686 [id number] [facility] 2022-04-27 16:00:00 2022-04-27 16:00:00 Outpatient ACNDELARIO ALEJO LUKE, CANDELARIO [facility] [id number] [facility] 2022-04-25 00:00:00 2022-04-25 00:00:00 Candelario [facility] 1..840.114 350.1.13.10 4.2.7.2.686 [id number] [facility] 2022-04-23 00:00:00 2022-04-23 00:00:00 Orders Only Doctor Unassigned, [place] [facility] 1.840.114 350.1.13.10 4.2.7.2.686 [id number] [facility] 2022-03-31 00:00:00 2022-03-31 00:00:00 Candelario [facility] 1..840.114 350.1.13.10 4.2.7.2.686 [id number] [facility] 2022-03-23 00:00:00 2022-03-23 00:00:00 Candelario Turner [facility]ARE PAVILLION 1..840.114 350.1.13.10 4.2.7.2.686 [id number] [facility] 2022-02-26 00:00:00 2022-02-26 00:00:00 Candelario Turner [facility] [[email or web address] PR[facility]AVILL[facility] 1.2.840.114 350.1.13.10 4.2.7.2.686 [id number] [facility] 2022-02-15 00:00:00 2022-02-15 00:00:00 Candelario Turner [facility]ARE PAVILLION 1.2.840.114 350.1.13.10 4.2.7.2.686 [id number] [facility] 2021-10-22 00:00:00 2021-10-22 00:00:00 Candelario Turner [facility] [[email or web address]] [facility] 1.2.840.114 350.1.13.10 4.2.7.2.686 [id number] [facility] 2021-06-25 00:00:00 2021-06-25 00:00:00 Candelario Turner [facility] Profess[facility] Building 1.2.840.114 350.1.13.10 4.2.7.2.686 [id number] [id number] [facility] 2021-05-11 00:00:00 2021-05-11 00:00:00 Candelario Turner [facility] Professio nal Building 1.2.840.114 350.1.13.10 4.2.7.2.686 [id number] [id number] [facility] 2021-02-26 00:00:00 2021-02-26 00:00:00 Candelario Turner [facility] Professio nal Building 1.2.840.114 350.1.13.10 4.2.7.2.686 [id number] [facility] 2020-11-30 12:00:00 2020-11-30 12:00:00 Outpatient [facility] [id number] [facility] 2020-11-22 13:41:29 2020-11-22 14:25:04 Office Visit Candelario Butler [facility] [[email or web address]] [facility] 1.2.840.114 350.1.13.10 4.2.7.2.686 [id number] [facility] 2020-11-22 14:20:00 2020-11-22 14:20:00 Outpatient Cynthia BUTLER CANDELARIO ALMANZACANDELARIO José [facility] [id number] [facility] 2020-11-17 00:00:00 2020-11-17 00:00:[address] [facility] Building 1.2.840.114 350.1.13.10 4.2.7.2.686 [id number] [facility] 2020 11:55:00 2020 11:55:00 Outpatient [facility] [id number] [facility] 2020-10-20 00:00:00 2020-10-20 00:00:00 AggieCandelario Pedro [facility] Building 1.2.840.114 350.1.13.10 4.2.7.2.686 [id number] [id number] [facility] 2020-10-10 00:00:00 2020-10-10 00:00:00 Telephone Candelario Butler [facility] 1.2.840.114 350.1.13.10 4.2.7.2.686 [id number] [facility] 2020-10-08 00:00:00 2020-10-08 00:00:[address] [facility] Building 1.2.840.114 350.1.13.10 4.2.7.2.686 [id number] [id number] [facility] 2020-10-04 00:00:00 2020-10-04 00:00:00 Candelario Turner [facility] Professio nal Building 1.2.840.114 350.1.13.10 4.2.7.2.686 [id number] [id number] [facility] 2020-08-30 00:00:00 2020-08-30 00:00:00 Candelario Ramirez [facility] Professio nal Building 1.2.840.114 350.1.13.10 4.2.7.2.686 [id number] [id number] [facility] 2020-07-26 00:00:00 2020-07-26 00:00:[address] [facility] Building 1.2.840.114 350.1.13.10 4.2.7.2.686 [id number] [id number] [facility] 2020-07-25 00:00:00 2020-07-25 00:00:00 Candelario Ramirez [facility] Professio nal Building 1.2.840.114 350.1.13.10 4.2.7.2.686 [id number] 092 [id number] [facility] 2020-07-15 00:00:00 2020-07-15 00:00:00 Candelario Turner [facility] Professio nal Building 1.2.840.114 350.1.13.10 4.2.7.2.686 [id number] 092 [id number] [facility] 2020-06-24 00:00:00 2020-06-24 00:00:00 Candelario Turnre [facility] Professio nal Building 1.2.840.114 350.1.13.10 4.2.7.2.686 [id number] [id number] [facility] 2020-04-05 00:00:00 2020-04-05 00:00:00 Candelario Ramirez [facility] Professio nal Building 1.2.840.114 350.1.13.10 4.2.7.2.686 [id number] [id number] [facility] 2020-02-27 00:00:00 2020-02-27 00:00:00 Telephone Candelario Butler [facility] Professio nal Building 1.2.840.114 350.1.13.10 4.2.7.2.686 [id number] [facility] 2020-02-26 00:00:00 2020-02-26 00:00:00 [facility] 1.2.840.114 350.1.13.10 4.2.7.2.686 [id number] [id number] [facility] 2020-02-26 00:00:00 2020-02-26 00:00:00 Candelario Ramirez [facility] Professio nal Building 1.2.840.114 350.1.13.10 4.2.7.2.686 [id number] [id number] [facility] 2020-01-29 00:00:00 2020-01-29 00:00:00 Mary Kate Candelario Butler [facility] Professio nal Building 1.2.840.114 350.1.13.10 4.2.7.2.686 [id number] [id number] [facility] 2019-12-04 00:00:00 2019-12-04 00:00:00 Candelario Ramirez [facility] Professio nal Building 1.2.840.114 350.1.13.10 4.2.7.2.686 [id number] [id number] [facility] 2019-11-29 00:00:00 2019-11-29 00:00:[address] [facility] Professio nal Building 1.2.840.114 350.1.13.10 4.2.7.2.686 [id number] [id number] [facility] 2019-11-16 00:00:00 2019-11-16 00:00:00 Telephone Candelario Butler [facility] Professio nal Building 1.2.840.114 350.1.13.10 4.2.7.2.686 [id number] 092 [id number] [facility] 2019-11-14 00:00:00 2019-11-14 00:00:00 [facility] 1.2.840.114 350.1.13.10 4.2.7.2.686 [id number] 092 [id number] [facility] 2019-11-02 00:00:00 2019-11-02 00:00:00 [facility] 1.2.840.114 350.1.13.10 4.2.7.2.686 [id number] 092 [id number] [facility] 2019-10-30 15:47:53 2019-10-30 16:39:52 [facility] 1.2.840.114 350.1.13.10 4.2.7.2.686 [id number] 092 [id number] [facility] 2019-10-06 00:00:00 2019-10-06 00:00:00 Telephone Candelario Butler [facility] nal Building 1.2.840.114 350.1.13.10 4.2.7.2.686 [id number] 092 [id number] [facility] 2019-10-01 00:00:00 2019-10-01 00:00:00 Candelario Turner [facility] Professio [facility] 1.2.840.114 350.1.13.10 4.2.7.2.686 [id number] 092 [id number] [facility]
[2024-10-11] MEDS ORDERED: ONDANSETRON 4 MG (ODT) TAB ONE (12:17)
[2024-10-11] MEDS ORDERED: MORPHINE 2 MG/ML SYR ONE (12:17)
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
[2024-10-11 20:04] VITALS: TEMP 97
[2024-10-11 20:06] VITALS: BP 138/72; O2SAT 99
== END 2024-10-11 13:50 | disposition home or self-care (01) ==
LOC: ER 11:57
DX: S09.90XA Unspecified injury of head, initial encounter (principal); Y04.8XXA Assault by other bodily force, initial encounter; Y99.0 Civilian activity done for income or pay
CPT/HCPCS: 70450; 72125; Q0162; J2270